=== PATIENT | male | born 1945 | race Caucasian/White ===

== ENCOUNTER 2024-03-24 14:30 | Emergency (ER) | payer OTHER, SELFPAY ==
--- NOTE | ~2024-03-24 | XR_ITS ---
EXAMINATION: X-ray right knee X-ray right tibia and fibula X-ray right ankle CLINICAL INFORMATION: Knee injury. Overlying bruising. COMPARISON: None TECHNIQUE: Knee 4 views. Tibia and fibula 2 views. Ankle 3 views. FINDINGS: Knee: Alignment is anatomic. No visible acute fracture or dislocation. Joint spaces are maintained. No significant effusion. Vascular calcifications present. Tibia and fibula: No visible acute fracture or malalignment. No suspicious bony lesions seen. No abnormal soft tissue calcification. No radiopaque foreign body in the soft tissues. Ankle: Ankle soft tissue swelling present.. Small ossific density projected in between the lateral malleolus and talar body, could reflect sequela of fracture, of indeterminate age or bony spurring or small loose body. Small spurring of the anterior aspect of the tibial plafond, with a small subjacent ossification, which could reflect a loose body. Ankle mortise is maintained. No tibial fracture is otherwise seen. No fracture seen of the anterior calcaneal process or fifth metatarsal base. No significant tibiotalar joint effusion is seen. XR/XR tibia fibula RT 2V IMPRESSION: Knee: No radiographic evidence of acute fracture or malalignment. Tibia and fibula, ankle: 1. Ankle soft tissue swelling. 2. Small ossific density in between the talar body-lateral malleolus articulation, of indeterminate etiology. This could represent a sequela of age-indeterminate fracture, loose body, bony spurring. Clinically correlate. 3. Mild tibiotalar joint arthritis, possible small loose body in the anterior joint space. 4. Additional imaging for further evaluation as clinically indicated. 5. If there is persistent symptoms, recommend follow-up radiographs or cross-sectional imaging,as clinically indicated.
--- NOTE | ~2024-03-24 | XR_ITS ---
EXAMINATION: X-ray right knee X-ray right tibia and fibula X-ray right ankle CLINICAL INFORMATION: Knee injury. Overlying bruising. COMPARISON: None TECHNIQUE: Knee 4 views. Tibia and fibula 2 views. Ankle 3 views. FINDINGS: Knee: Alignment is anatomic. No visible acute fracture or dislocation. Joint spaces are maintained. No significant effusion. Vascular calcifications present. Tibia and fibula: No visible acute fracture or malalignment. No suspicious bony lesions seen. No abnormal soft tissue calcification. No radiopaque foreign body in the soft tissues. Ankle: Ankle soft tissue swelling present.. Small ossific density projected in between the lateral malleolus and talar body, could reflect sequela of fracture, of indeterminate age or bony spurring or small loose body. Small spurring of the anterior aspect of the tibial plafond, with a small subjacent ossification, which could reflect a loose body. Ankle mortise is maintained. No tibial fracture is otherwise seen. No fracture seen of the anterior calcaneal process or fifth metatarsal base. No significant tibiotalar joint effusion is seen. XR/XR ankle RT min 3V IMPRESSION: Knee: No radiographic evidence of acute fracture or malalignment. Tibia and fibula, ankle: 1. Ankle soft tissue swelling. 2. Small ossific density in between the talar body-lateral malleolus articulation, of indeterminate etiology. This could represent a sequela of age-indeterminate fracture, loose body, bony spurring. Clinically correlate. 3. Mild tibiotalar joint arthritis, possible small loose body in the anterior joint space. 4. Additional imaging for further evaluation as clinically indicated. 5. If there is persistent symptoms, recommend follow-up radiographs or cross-sectional imaging,as clinically indicated.
--- NOTE | ~2024-03-24 | XR_ITS ---
EXAMINATION: X-ray right knee X-ray right tibia and fibula X-ray right ankle CLINICAL INFORMATION: Knee injury. Overlying bruising. COMPARISON: None TECHNIQUE: Knee 4 views. Tibia and fibula 2 views. Ankle 3 views. FINDINGS: Knee: Alignment is anatomic. No visible acute fracture or dislocation. Joint spaces are maintained. No significant effusion. Vascular calcifications present. Tibia and fibula: No visible acute fracture or malalignment. No suspicious bony lesions seen. No abnormal soft tissue calcification. No radiopaque foreign body in the soft tissues. Ankle: Ankle soft tissue swelling present.. Small ossific density projected in between the lateral malleolus and talar body, could reflect sequela of fracture, of indeterminate age or bony spurring or small loose body. Small spurring of the anterior aspect of the tibial plafond, with a small subjacent ossification, which could reflect a loose body. Ankle mortise is maintained. No tibial fracture is otherwise seen. No fracture seen of the anterior calcaneal process or fifth metatarsal base. No significant tibiotalar joint effusion is seen. XR/XR knee RT 3V IMPRESSION: Knee: No radiographic evidence of acute fracture or malalignment. Tibia and fibula, ankle: 1. Ankle soft tissue swelling. 2. Small ossific density in between the talar body-lateral malleolus articulation, of indeterminate etiology. This could represent a sequela of age-indeterminate fracture, loose body, bony spurring. Clinically correlate. 3. Mild tibiotalar joint arthritis, possible small loose body in the anterior joint space. 4. Additional imaging for further evaluation as clinically indicated. 5. If there is persistent symptoms, recommend follow-up radiographs or cross-sectional imaging,as clinically indicated.
[2024-03-24 14:35] VITALS: BP 123/62; PULSE 96; RESP 17; TEMP 36.6; O2SAT 96; BMI 22.3
--- NOTE | 2024-03-24 14:36 | ED.GENADULT ---
HPI - General Adult General Chief complaint: Extremity Injury, Lower Stated complaint: knee swelling Time Seen by Provider: 03/24/24 16:01 Source: patient, family (), RN notes reviewed and old records reviewed Mode of arrival: ambulatory Limitations: no limitations History of Present Illness ED Provider: Riccardo HPI narrative: 78-year-old male with past medical history significant for atrial fibrillation on Eliquis, hypertension, some type of bone cancer followed by Dr. Tadeo presents for evaluation right leg swelling. Patient reports he 1st noticed bruising and swelling to his right leg 5 days ago. He denies any specific injury to the right leg He believes he may have caused injury when getting himself into the tub to bathe himself Patient admits that he has a bad left hip and he has pain while moving. To alleviate the pain if his hip he usually rest his right knee on the side of the tub He reports having had an ultrasound of the right lower leg 2 days ago which was reportedly negative The patient states that he has no pain at rest but has mild pain with moving the right leg or palpate in the right leg Denies fevers or chills The patient denies any recent falls His last fall was several months ago per his Related Data Allergies Allergy/AdvReac Type Severity Reaction Status Date / Time No Known Allergies Allergy Verified 03/24/24 14:37 Review of Systems Constitutional: Constitutional: Denies body ache(s), Denies chills, Denies fever(s) and Denies frequent falls Cardiovascular: Cardiovascular: Denies chest pain and Denies dyspnea Respiratory: Respiratory: Denies cough and Denies dyspnea Musculoskeletal: Musculoskeletal: Reports arthralgias, Reports joint swelling and Denies limited range of motion Integumentary/Breasts: Skin/Breast: Reports unusual bruising Neurologic: Denies frequent falls [facility] Social History Social History (System 11/08/23 @ 14:13 by Melinda Obregon) Advance Directives: No Advance Directives Information Provided: No Physical Exam ED Vital Signs: Vital Signs - 24 hr 03/24/24 14:35 03/24/24 16:30 Temperature 98 F Pulse Rate 96 88 Respiratory Rate 17 16 Blood Pressure 123/62 179/101 H Pulse Oximetry 96 98 Oxygen Delivery Method Room Air Room Air BMI result Body Mass Index 22.3 Const General: healthy appearing, comfortable, no acute distress, alert and awake Nutritional Appearance: well nourished Orientation/consciousness: patient oriented x3 HENMT Head: Yes normocephalic and Yes atraumatic Eyes Eyelids: Yes eyelids normal Conjunctivae: conjunctivae normal Sclerae: sclerae normal Corneas: corneas normal Pupils: Equal, round and reactive pupils present EOM: EOMs intact bilaterally Neck Neck: Yes full ROM Resp Effort & Inspection: normal respiratory effort, able to speak in complete sentences and not labored Cardio Other: Dorsal pedis pulse on the right 2+ Skin General skin exam: elasticity normal Neuro General: patient oriented x3 Cranial nerves: Yes Equal, round and reactive pupils present and Yes Bilaterally intact EOM present Cognition (Neuro): normal cognition Extrem Other: The patient has marked edema to the right lower extremity below the knee. There is significant ecchymosis to the area. The color ranges from dark purple to yellow. There is pitting edema to the right lower extremity only. There is no calf tenderness, no tenderness to right ankle. Minimal tenderness to the right knee. The patient is able to flex and extend the right knee without difficulty. There was no edema to the left lower extremity Course Course Course Narrative: This is a Rapid Medical Examination (RME) performed by Tracy Fox PA-C in triage. Full HPI, ROS, assessment and treatment plan per primary provider in the Main ED. 78 yo male here for eval of right knee/ lower leg pain/ swelling x6 days. pain extends from lower leg up into knee. He believes he may have hit the knee on the tub when attempting to get into the bath. no other injury or trauma to the leg. reports open wound to leg that was oozing yesterday. took tylenol [employer] in ed. on eliquis. Venous duplex competled at [facility] on Monday (2 days ago) negative for VTE. Patient dressed in jeans in triage. Unable to visualize knee or lower leg. ambulating w/ steady gait assisted by walker. Plan: labs, XR ordered Medical Decision Making Medical Decision Making [facility] Narrative: 78-year-old male presents for evaluation of right leg bruising and swelling. He denies any specific trauma. His x-ray shows no acute fracture but osteophyte versus loose body in the ankle. The patient has no ankle pain whatsoever no tenderness to the right ankle on exam, less likely to be an acute fracture. There is no evidence of infection. The patient was ruled out for DVT. The patient has no pain to suggest compartment syndrome, the patient will be discharged home with symptomatic care Differential Diagnosis Differential Diagnoses: The differential diagnosis associated with the presentation includes Right leg swelling Right leg bruising Right leg fracture Dependent edema Lab Data MDM Lab Attestation statement: I reviewed the patient's lab results. Patient has no previous labs for comparison, however he has no leukocytosis. He has a mild macrocytic anemia. Platelet count within normal limits. Chemistries are within normal limits, the patient's BUN is slightly above normal at 24, total bilirubin is 1.3 but undifferentiated. LFTs within normal limits. 03/24/24 15:55 03/24/24 15:55 Labs: Lab Results 03/24/24 Range/Units 15:55 WBC 6.7 (4.8-10.8) X10*3/uL RBC 3.17 L (4.60-5.80) X10*6/uL Hgb 11.3 L (14.0-18.0) g/dl Hct 31.4 L (42.0-52.0) % MCV 99.1 H (80.0-98.0) fL MCH 35.6 H (27.0-33.0) pg MCHC 36.0 (31.0-36.0) g/dl RDW 13.0 (11.0-16.0) % Plt Count 217 (160-400) X10*3/uL MPV 8.9 L (9.4-12.4) fL Immature Gran % (Auto) 0.7 H (0.0-0.4) % Neut % (Auto) 79.1 H (45-73) % Lymph % (Auto) 10.7 L (20-40) % [place] % (Auto) 9.1 (2-11) % Eos % (Auto) 0.1 (0-4) % Baso % (Auto) 0.3 (0-2) % Lymph # (Auto) 0.7 L (1.2-4.9) X10*3/uL [place] # (Auto) 0.6 (0.1-1.2) X10*3/uL Eos # (Auto) 0.0 (0.0-0.4) X10*3/uL Baso # (Auto) 0.0 (0.0-0.2) X10*3/uL Abs Immat Gran (auto) 0.05 H (0.00-0.03) X10*3/uL Absolute Neuts (auto) 5.3 (2.0-8.3) x10*3/uL Absolute Nucleated RBC 0.000 (0.0-0.012) X10*3/uL Nucleated RBC % (auto) 0.0 (0.0-0.2) /100WBC PT 17.2 H (11.1-13.3) SEC INR 1.4 H (0.9-1.1) Sodium 137 (135-145) mmol/L Potassium 3.9 (3.3-5.1) mmol/L Chloride 101 (96-108) mmol/L Carbon Dioxide 28 (22-29) mmol/L Anion Gap 12 (12-20) BUN 24 H (9-16) mg/dL Creatinine 0.97 (0.5-1.4) mg/dL Estim Creat Clear Calc 51.5 Estimated GFR > 60 Random Glucose 98 (60-115) mg/dL Calcium 9.4 (8.4-10.2) mg/dL Magnesium 1.6 (1.6-2.6) mg/dL Total Bilirubin 1.3 H (0.0-1.0) mg/dL AST 29 (5-37) U/L ALT 19 (0-40) U/L Alkaline Phosphatase 82 (39-117) U/L Total Protein 6.4 L (6.5-8.0) g/dL Albumin 3.8 (3.5-5.0) g/dL Lipase 38 (8-78) U/L Radiology Impression Discussion of test interpretation with radiology: I have reviewed the radiologist's reading. Radiologist Impression: XR/XR tibia fibula RT 2V IMPRESSION: Knee: No radiographic evidence of acute fracture or malalignment. Tibia and fibula, ankle: 1. Ankle soft tissue swelling. 2. Small ossific density in between the talar body-lateral malleolus articulation, of indeterminate etiology. This could represent a sequela of age-indeterminate fracture, loose body, bony spurring. Clinically correlate. 3. Mild tibiotalar joint arthritis, possible small loose body in the anterior joint space. 4. Additional imaging for further evaluation as clinically indicated. 5. If there is persistent symptoms, recommend follow-up radiographs or cross-sectional imaging,as clinically indicated. Discharge Plan Discharge Clinical Impression: Right leg swelling, Hypertension Patient Disposition: Home, Self-Care Instructions: Leg Edema (ED) Additional Instructions: Take all your medications as prescribed. Elevate your right leg above your heart while resting. Follow-up with your primary doctor Return for new or worsening symptoms Print Language: Cameroonian
[2024-03-24 16:01] LABS: MANUAL DIFF FLAG NO
[2024-03-24 16:04] LABS: Basophils Percent Auto 0.3 % (0-2); Eosinophils Percent Auto 0.1 % (0-4); Hematocrit 31.4 % (42.0-52.0); Hemoglobin 11.3 g/dl (14.0-18.0); Imm Gran Abs Auto 0.05 X10*3/uL (0.00-0.03); Imm Gran Pct Auto 0.7 % (0.0-0.4); Lymphocytes Absolute Auto 0.7 X10*3/uL (1.2-4.9); Lymphocytes Percent Auto 10.7 % (20-40); Mean Corpuscular Hemoglobin 35.6 pg (27.0-33.0); Mean Corpuscular Volume 99.1 fL (80.0-98.0); Mean Platelet Volume 8.9 fL (9.4-12.4); Monocytes Absolute Auto 0.6 X10*3/uL (0.1-1.2); Monocytes Percent Auto 9.1 % (2-11); Neutrophils Absolute Auto 5.3 x10*3/uL (2.0-8.3); Neutrophils Percent Auto 79.1 % (45-73); Platelet Count 217 X10*3/uL (160-400); Red Blood Count 3.17 X10*6/uL (4.60-5.80); White Blood Count 6.7 X10*3/uL (4.8-10.8)
[2024-03-24 16:10] LABS: INTERNATIONAL NORM RATIO 1.4 (0.9-1.1); Prothrombin Time 17.2 SEC (11.1-13.3)
[2024-03-24 16:19] LABS: Alanine Aminotransferase 19 U/L (0-40); Albumin Level 3.8 g/dL (3.5-5.0); Alkaline Phosphatase 82 U/L (39-117); Anion Gap 12 (12-20); Aspartate Amino Transferase 29 U/L (5-37); Bilirubin Total 1.3 mg/dL (0.0-1.0); Blood Urea Nitrogen 24 mg/dL (9-16); Calcium 9.4 mg/dL (8.4-10.2); Carbon Dioxide 28 mmol/L (22-29); Chloride 101 mmol/L (96-108); Creatinine Clr Calc Pharmacy 51.5; Estimated Glomerular Filt Rate > 60; Glucose Random 98 mg/dL (60-115); Lipase 38 U/L (8-78); Magnesium 1.6 mg/dL (1.6-2.6); Potassium 3.9 mmol/L (3.3-5.1); Sodium 137 mmol/L (135-145); Total Protein 6.4 g/dL (6.5-8.0)
[2024-03-24 16:30] VITALS: BP 179/101; PULSE 88; RESP 16; O2SAT 98
[2024-03-24] MEDS: amLODIPine Besylate 2.5 MG TABLET PO (17:03)
[2024-03-24 17:08] VITALS: BP 179/101; PULSE 88; RESP 16; TEMP -17.7; TEMP 0; O2SAT 98
== END 2024-03-24 17:09 | disposition home or self-care (01) ==
PROVIDERS: Physician Assistant Medical; Emergency Provider Emergency Medicine; PCP Internal Medicine
DX: M79.89 Other specified soft tissue disorders (principal); I10 Essential (primary) hypertension; I48.91 Unspecified atrial fibrillation; Z79.01 Long term (current) use of anticoagulants
CPT/HCPCS: 36415; 73562; 73590; 73610; 80053; 83690; 83735; 85025; 85610; 99283

== ENCOUNTER 2024-07-28 04:43 | Emergency (ER) | payer OTHER, SELFPAY ==
--- NOTE | ~2024-07-28 | CT_ITS ---
EXAMINATION: CT HEAD WITHOUT CONTRAST CT CERVICAL SPINE WITHOUT CONTRAST CLINICAL INFORMATION: Fall. Pain. COMPARISON: None available. TECHNIQUE: Contiguous axial imaging was performed through the head and cervical spine without intravenous administration of contrast. Sagittal and coronal reformatted images also obtained. This CT examination was performed using dose optimization techniques as appropriate, variously including the following: *Automated exposure control *Adjustment of mA and/or kV according to patient size (this includes techniques or standardized protocols for targeted exams where dose is matched to indication/reason for exam; i.e. extremities or head) *Use of iterative reconstruction technique DLP: 882 mGy-cm FINDINGS: There is mild cerebral volume loss with prominence of the lateral and the third ventricles. The cortical sulci are widened appropriately. The fourth ventricle and basal cisterns are normally outlined. There is mild bilateral periventricular and central white matter diminished attenuation. There is no acute vertebral defect, hemorrhage or midline shift. The extra-axial spaces are unremarkable. Calvarium/scalp: Intact. Maxillofacial sinuses and mastoids: Clear as visualized. Cervical spine: The alignment is within normal limits. C3 to C5 laminectomies are noted. There is diffuse moderate cervical disc degenerative change with loss of disc space, endplate change and posterior osteophytes associated with diffuse mild facet osteoarthritic hypertrophic change with multilevel mild spinal canal and multilevel mild to moderate neuroforaminal narrowing. The bony structures are heterogeneous. Sclerotic lesions are seen within multiple cervical and upper thoracic vertebral bodies including the posterior elements of multiple cervical and thoracic vertebral bodies. The soft tissues are unremarkable. The visualized upper lung bowers are clear.. CT/CT cervical spine wo IV con IMPRESSION: 1. No acute intracranial process seen. Age-related cerebral volume loss with chronic small vessel ischemic changes. 2. There is no acute cervical spine fracture or dislocation. There are multiple sclerotic lesions within the cervical and upper thoracic vertebral bodies. Recommend correlation with bone scan as bone scan suspected. 3. There is C3-C5 laminectomies. There are degenerative disc changes and facet joint arthropathy throughout the cervical spine with multilevel mild spinal canal and mild to moderate neuroforaminal narrowing. Electronically signed by: Martin Xavier MD 07/28/2024 06:09 AM EDT
--- NOTE | ~2024-07-28 | XR_ITS ---
EXAMINATION: XR HIP, LEFT CLINICAL INFORMATION: Fall COMPARISON: None available. TECHNIQUE: Two views of the left hip and single view of the pelvis. 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 No acute visible fracture or dislocation. Moderate degenerative arthropathy of the right femoral acetabular joint. Degenerative changes of the lumbosacral spine. Multifocal sclerotic foci throughout the pelvis, nonspecific and reflect Paget's disease though other etiologies not excluded. Bowel gas is unremarkable. Soft tissues are unremarkable. XR/XR hip LT w PEL1V IMPRESSION: 1. 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 2. No acute visible fracture or dislocation. 3. Moderate degenerative arthropathy of the right femoral acetabular joint. 4. Degenerative changes of the lumbosacral spine. 5. Multifocal sclerotic foci throughout the pelvis, nonspecific and reflect Paget's disease though other etiologies not excluded. Electronically signed by: Liyah Lr MD 07/28/2024 07:27 AM EDT
[2024-07-28 04:49] VITALS: BP 130/86; PULSE 85; O2SAT 98
[2024-07-28 04:50] VITALS: BP 162/96; PULSE 90; RESP 15; TEMP 37; O2SAT 95; BMI 22.6
--- NOTE | 2024-07-28 05:04 | ED.FALL ---
HPI - Fall General Chief Complaint: Fall Stated Complaint: Fell out of bed, +blood thinners, -LOC ,+HS Time Seen by Provider: 07/28/24 05:04 Source: patient Mode of arrival: EMS Limitations: no limitations History of Present Illness ED Provider: tiesha PIERRE Narrative: Patient' history of atrial fibrillation on Eliquis apparently rolled over from his bed to the ground in sleep comes here with superficial abrasion to the forehead no loss of consciousness no nausea no vomiting no significant headache no other injuries patient does have chronic left hip pain Related Data Home Medications ?Medication ?Instructions ?Recorded ?Confirmed acetaminophen 325 mg tablet 650 mg PO Q6H PRN Pain 07/28/24 07/28/24 amlodipine 2.5 mg tablet 2.5 mg PO DAILY PRN HIGH BLOOD 07/28/24 07/28/24 PRESSURE apixaban 5 mg tablet (Eliquis) 5 mg PO BID 07/28/24 07/28/24 betamethasone dipropionate 0.05 % 1 appl topical DAILY 07/28/24 07/28/24 topical cream cholecalciferol (vitamin D3) 25 25 mcg PO DAILY 07/28/24 07/28/24 mcg (1,000 unit) tablet enzalutamide 40 mg capsule (Xtandi) 160 mg PO DAILY 07/28/24 07/28/24 folic acid 1 mg tablet 1 mg PO MO@0900 07/28/24 07/28/24 lactobacillus comb no.10 20 20,000 mmu cells PO DAILY@1800 07/28/24 07/28/24 billion cell capsule (Probiotic) leuprolide acetate (6 month) 45 mg 45 mg subcut [id number] 07/28/24 07/28/24 (6 month) subcutaneous syringe (Eligard) metoprolol tartrate 25 mg tablet 25 mg PO BEDTIME 07/28/24 07/28/24 multivitamin-iron 9 mg-folic acid 1 tab PO DAILY 07/28/24 07/28/24 400 mcg-calcium and minerals tablet prednisone 5 mg tablet 5 mg PO BID 07/28/24 07/28/24 sulfamethoxazole 400 1 tab PO BID 07/28/24 07/28/24 mg-trimethoprim 80 mg tablet tramadol 50 mg tablet 50 mg PO BID PRN pain 07/28/24 07/28/24 Allergies Allergy/AdvReac Type Severity Reaction Status Date / Time No Known Allergies Allergy Verified 07/28/24 04:55 Review of Systems Review of Systems: Yes all other systems are reviewed and are negative [facility] Social History Social History Alcohol intake: current Alcohol intake frequency: 0-2 drinks per day Smoked in Last 30 Days: Yes Use of substances other than those prescribed or required for medical reasons: No Advance Directives: No Do you have a plan to hurt others: No Plan Physical Exam Vital Signs: Vital Signs: Last Vital Signs Temp 97.2 F 07/29/24 06:37 Pulse 79 07/29/24 06:37 Resp 16 07/29/24 06:37 BP 142/80 H 07/29/24 07:45 Pulse Ox 95 07/29/24 06:37 O2 Del Method Room Air 07/29/24 06:37 BMI result Body Mass Index 22.6 Appearance: Alert. Oriented X3. No acute distress. Eyes: PERRLA, No Nystagmus HEENT: Pharynx normal. Oral Mucosa moist superficial linear abrasion to the forehead Neck: Normal inspection. Neck supple. CVS: Irregularly irregular heart rate. Pulses normal. Respiratory: No respiratory distress. Equal air entry bilateral, no wheezing/rales/rhonchi Abdomen: Soft and nontender. Bowel sounds are present, no mass palpable, no CVA tenderness Skin: Skin warm and dry. Normal skin color. Normal skin turgor. Extremities: No lower extremity edema. No calf tenderness left hip tenderness chronic per patient Neuro: Oriented X 3. No motor deficit. No sensory deficit.No cerebellar signs , cranial nerves II-XII intact Course Reevaluation(s) Reevaluation #1: DR. Fitzgerald's Progress note; was ready for discharge stated that she can not care for the patient at, patient is failure to thrive and deconditioning requesting physical therapy and assessment for short-term rehab, patient was started on physician observation, case management and PT consult were ordered. Time: 08:06 Reevaluation #2: 07/29/2024 0817 - physician observation continued. Patient hypertensive upon the initiation of my shift. Spoke to the nurse who report that patient did not get his hypertensive medication until later on in the evening. Patient also has amlodipine ordered as needed. He was given a dose, blood pressure improved to 142/80. He was asymptomatic. We will continue to closely monitor pending case management disposition. Patient also is on albuterol as needed for COPD which is not in the med rec. He is not currently short of breath however would like to have this on his medication list. This was added only to be used as needed. We will continue to monitor Medications Administered Generic Name Dose Route Start Last Admin Trade Name Freq PRN Reason Stop Dose Admin Apixaban 5 mg 07/28/24 21:00 07/28/24 21:29 Apixaban 5 Mg Tablet PO 5 mg BID RONNIE Administration Metoprolol Tartrate 25 mg 07/28/24 21:00 07/28/24 21:31 Metoprolol Tartrate 25 Mg Tablet PO 25 mg BEDTIME RONNIE Administration Protocol Prednisone 5 mg 07/28/24 21:00 07/28/24 21:30 Prednisone 5 Mg Tablet PO 08/08/24 20:59 5 mg BID RONNIE Administration Trimethoprim/Sulfamethoxazole 1 tab 07/28/24 21:00 07/28/24 21:30 Sulfamethox/Trimeth 400/80 Tablet PO 1 tab BID RONNIE Administration Discontinued Medications Generic Name Dose Route Start Last Admin Trade Name Freq PRN Reason Stop Dose Admin Bacitracin 1 appl 07/28/24 05:31 07/28/24 06:00 Bacitracin Oint 0.9 Gm Packet TOPICAL 07/28/24 05:32 1 appl ONCE ONE Administration Protocol Medical Decision Making Medical Decision Making [facility] Narrative: Patient with mechanical fall rolled over from the bed no significant injury except for superficial abrasion to the forehead CT scan of the head and C-spine negative Lab Data 07/28/24 08:27 07/28/24 08:27 Labs: Lab Results 07/28/24 07/29/24 Range/Units 08:27 00:27 WBC 5.7 (4.8-10.8) X10*3/uL RBC 4.04 L D (4.60-5.80) X10*6/uL Hgb 13.9 L D (14.0-18.0) g/dl Hct 39.6 L D (42.0-52.0) % MCV 98.0 (80.0-98.0) fL MCH 34.4 H (27.0-33.0) pg MCHC 35.1 (31.0-36.0) g/dl RDW 12.9 (11.0-16.0) % Plt Count 221 (160-400) X10*3/uL MPV 8.6 L (9.4-12.4) fL Immature Gran % (Auto) 0.5 H (0.0-0.4) % Neut % (Auto) 69.4 (45-73) % Lymph % (Auto) 19.3 L (20-40) % [place] % (Auto) 9.6 (2-11) % Eos % (Auto) 0.5 (0-4) % Baso % (Auto) 0.7 (0-2) % Lymph # (Auto) 1.1 L (1.2-4.9) X10*3/uL [place] # (Auto) 0.6 (0.1-1.2) X10*3/uL Eos # (Auto) 0.0 (0.0-0.4) X10*3/uL Baso # (Auto) 0.0 (0.0-0.2) X10*3/uL Abs Immat Gran (auto) 0.03 (0.00-0.03) X10*3/uL Absolute Neuts (auto) 4.0 (2.0-8.3) x10*3/uL Absolute Nucleated RBC 0.000 (0.0-0.012) X10*3/uL Nucleated RBC % (auto) 0.0 (0.0-0.2) /100WBC Sodium 137 (135-145) mmol/L Potassium 4.8 D (3.3-5.1) mmol/L Chloride 103 (96-108) mmol/L Carbon Dioxide 26 (22-29) mmol/L Anion Gap 13 (12-20) BUN 19 H (9-16) mg/dL Creatinine 0.85 (0.5-1.4) mg/dL Estim Creat Clear Calc 61.2 Estimated GFR > 60 Random Glucose 95 (60-115) mg/dL Calcium 9.5 (8.4-10.2) mg/dL Urine Color Yellow Urine Appearance Clear Urine pH 6.0 (5.0-9.0) Ur Specific [place] 1.010 (1.005-1.025) Urine Protein Negative (Neg-Trace) mg/dL Urine Glucose (UA) Negative (Negative) mg/dL Urine Ketones Negative (Negative) mg/dL Urine Blood Negative (Negative) Urine Nitrite Negative (Negative) Ur Leukocyte Esterase Negative (Negative) Independent Interpretation I performed an independent interpretation of an: CT Scan Radiology Impression Discussion of test interpretation with radiology: I have reviewed the radiologist's reading. Discharge Plan Discharge Clinical Impression: Fall Patient Disposition: Home, Self-Care Instructions: Fall Prevention (ED) Additional Instructions: Your CT scan of the head and C-spine negative for acute your x-ray of the hip also negative for acute fracture Care and cautions as advised Prescriptions: No Action sulfamethoxazole-trimethoprim 400-80 mg tablet 1 tab PO BID prednisone 5 mg tablet 5 mg PO BID Rx Instructions: UNTIL END amlodipine 2.5 mg tablet 2.5 mg PO DAILY PRN (Reason: HIGH BLOOD PRESSURE) Rx Instructions: FOR SBP <140 tramadol 50 mg tablet 50 mg PO BID PRN (Reason: pain) metoprolol tartrate 25 mg tablet 25 mg PO BEDTIME cholecalciferol (vitamin D3) 25 mcg (1,000 unit) tablet 25 mcg PO DAILY Eliquis 5 mg tablet 5 mg PO BID acetaminophen 325 mg Tablet 650 mg PO Q6H PRN (Reason: Pain) betamethasone dipropionate 0.05 % cream 1 appl topical DAILY folic acid 1 mg Tablet 1 mg PO MO@0900 Xtandi 40 mg Capsule 160 mg PO DAILY Probiotic 20 billion cell Capsule 20,000 mmu cells PO DAILY@1800 Rx Instructions: administer with a meal Therems-M 9 mg iron-400 mcg Tablet 1 tab PO DAILY Eligard (6 month) 45 mg Syringe 45 mg SUBCUT [id number] Print Language: Danish
--- NOTE | 2024-07-28 05:50 | MHC.EDTECH ---
patient's forehead cleaned and bacitracin applied per provider.
[2024-07-28] MEDS: Bacitracin Oint 0.9 GM PACKET 1 APPL TOPICAL (06:00)
[2024-07-28 06:04] VITALS: BP 156/85; PULSE 71; RESP 14; TEMP 36.9; O2SAT 96
--- NOTE | 2024-07-28 06:51 | PC.NURSE ---
report given to Irma WHALEY
[2024-07-28 08:33] LABS: MANUAL DIFF FLAG NO
[2024-07-28 08:49] LABS: Basophils Percent Auto 0.7 % (0-2); Eosinophils Percent Auto 0.5 % (0-4); Hematocrit 39.6 % (42.0-52.0); Hemoglobin 13.9 g/dl (14.0-18.0); Imm Gran Abs Auto 0.03 X10*3/uL (0.00-0.03); Imm Gran Pct Auto 0.5 % (0.0-0.4); Lymphocytes Absolute Auto 1.1 X10*3/uL (1.2-4.9); Lymphocytes Percent Auto 19.3 % (20-40); Mean Corpuscular HGB Conc 35.1 g/dl (31.0-36.0); Mean Corpuscular Hemoglobin 34.4 pg (27.0-33.0); Mean Platelet Volume 8.6 fL (9.4-12.4); Monocytes Absolute Auto 0.6 X10*3/uL (0.1-1.2); Monocytes Percent Auto 9.6 % (2-11); Neutrophils Percent Auto 69.4 % (45-73); Platelet Count 221 X10*3/uL (160-400); Red Blood Count 4.04 X10*6/uL (4.60-5.80); Red Cell Distribution Width 12.9 % (11.0-16.0); White Blood Count 5.7 X10*3/uL (4.8-10.8)
[2024-07-28 08:52] LABS: Anion Gap 13 (12-20); Blood Urea Nitrogen 19 mg/dL (9-16); Calcium 9.5 mg/dL (8.4-10.2); Carbon Dioxide 26 mmol/L (22-29); Chloride 103 mmol/L (96-108); Creatinine Clr Calc Pharmacy 61.2; Estimated Glomerular Filt Rate > 60; Glucose Random 95 mg/dL (60-115); Potassium 4.8 mmol/L (3.3-5.1); Sodium 137 mmol/L (135-145)
--- NOTE | 2024-07-28 09:09 | PC.NURSE ---
This RN resumed care of patient at 0700, at this time we were waiting for his Xray to be read. Xray came back negative, this Rn then called his which was suppose to come pick him up. This Rn then got into a very long conversation with Christine who is clearly very overwhelmed and unable to take care of him safely at home. this Rn then went to hot car charger and MD who placed Pt/CM, Christine is aware. Report given to Ed Overflow at this time
--- NOTE | 2024-07-28 12:08 | PC.NURSE ---
Pt comes to overflow unit from ED for PT/CM. Per report from ED RN, Pts has great concern for Pt returning home d/t fall risk. Pharmacy in with Pt for med rec at this time. Pt resting quietly in hospital bed; NAD noted at this time.
--- NOTE | 2024-07-28 12:27 | PHA.MEDREC ---
Addendum entered by Liz Vieira RPh 07/28/24 13:00: MED REC REVIEWED BY Bright Original Note: Pharmacy Consult ? Medication Reconciliation Pharmacy has completed the medication reconciliation. Spoke to patient and patient's spouse (june - [phone]) to confirm meds. Patient's spouse is well-versed on patients medications. Patient is on Xtandi 160 mg daily and gets Eligard injections every 6 months with last injection in May.
--- NOTE | 2024-07-28 13:00 | MHC.CM.PN ---
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 PT REPORTS HE HAS A FWW/ROLLATERGRAB BARS IN AND CUT OUT OF BATH TUB, PT REPORTS HE AND HAVE A RING STAMPER 1 OR 2 TIMES A WK AND PT REQUESTS CM CONTACT HIS MARCH. CM CONTACTED PT'S MARCH AT 112:40PM [phone], LIDIA APPEARS TO BE OVERWHELMED W/CAREGIVER BURNOUT AND VERY SCATTERED TO SPEAK TO, SARAH WANTS STR FOR PT HOWEVER WANTS HIM TO GO TO A GOOD PLACE AND REPORTS SHE CANT GO FAR FROM THEIR HOME IN [place], PT REPORTS HE WOULD LIKE [facility] OR [facility]. MARCH ALSO REPORTS PT HAS AN APPT ON MONDAY W/A INTERCELL CONNECTOR PLACER FROM [facility] TO EVALUATE HIM FOR PALLIATIVE CARE MULTIPLE PROVIDERS HAVE RECOMMENDED IT.
[2024-07-28 14:00] VITALS: BP 137/71; PULSE 85; RESP 17; TEMP 36.9; O2SAT 97
--- NOTE | 2024-07-28 15:39 | PC.NURSE ---
Pts family at bedside to visit. delivers Pts Xtandi (enzalutamide) 40mg medication from home per request of Pharmacy staff this AM. Call placed to Pharmacy and spoke with Jacobo. Pharmacy staff to retrieve medication for verification.
--- NOTE | 2024-07-28 19:23 | PC.NURSE ---
This RN assumed pt care @ 1900. Pt sitting up in bed to use urinal Pt reminded not to get oob, unless he calls for assistance. Pts bed alarm set. Plan of care ongoing.
[2024-07-28 20:21] VITALS: BP 162/84; PULSE 62; RESP 16; TEMP 36.6; O2SAT 97
--- NOTE | 2024-07-28 21:06 | PC.NURSE ---
Meds not in pyxis, requested from pharmacy. Plan of care ongoing.
--- NOTE | 2024-07-28 21:18 | PC.NURSE ---
Pt rafaeling jass for meds, this RN explained waiting on a med from the pharmacy and once those are received his meds will be brought to him. Pts on the phone, stating pt needs his meds and she is very upset that he has not received meds today. This RN explained to pt and that meds are required from the pharmacy and once those are received he will be given his 2100 meds. Plan of care ongoing.
[2024-07-28] MEDS: Apixaban 5 MG TABLET PO (21:29)
[2024-07-28] MEDS: Sulfamethox/Trimeth 400/80 TABLET 1 TAB PO (21:30)
[2024-07-28] MEDS: predniSONE 5 MG TABLET PO (21:30)
[2024-07-28 21:31] VITALS: BP 162/84
[2024-07-28] MEDS: Metoprolol Tartrate 25 MG TABLET PO (21:31)
--- NOTE | 2024-07-28 21:57 | PC.NURSE ---
Pt medicated per [facility] Plan of care ongoing.
[2024-07-29 00:33] LABS: Appearance Urine Clear; Color Urine Yellow; Glucose Urine UA Negative (Negative); Leukocyte Esterase Urine Negative (Negative); Nitrite Urine Negative (Negative); Urine Blood Negative (Negative); Urine Ketones Negative (Negative); Urine Protein Negative (Neg-Trace)
--- NOTE | 2024-07-29 03:50 | PC.NURSE ---
Pt requested and light turned off. Plan of care ongoing.
--- NOTE | 2024-07-29 06:13 | PC.NURSE ---
Pt assisted into wheelchair from toilet and back into bed. Plan of care ongoing.
[2024-07-29 06:37] VITALS: BP 186/94; PULSE 79; RESP 16; TEMP 36.2; O2SAT 95
--- NOTE | 2024-07-29 06:43 | PC.NURSE ---
Provider notified and aware of pts b/p 186/94. Plan of care ongoing.
--- NOTE | 2024-07-29 06:51 | PC.NURSE ---
Pt medicated per dec. Plan of care ongoing.
[2024-07-29 07:45] VITALS: BP 142/80
--- NOTE | 2024-07-29 07:46 | PC.NURSE ---
pt noted to be hypertensive during previous shift. BP medication administered by previous RN. updated BP obtained post medication administration. BP seems to be trending downward at this time. provider notified/aware.
--- NOTE | 2024-07-29 08:19 | MHC.EDTECH ---
pt voided 300 ml
--- NOTE | 2024-07-29 08:20 | MHC.EDTECH ---
pt ate 100% breakfast
[2024-07-29] MEDS: ENZALUTAMIDE 40 MG 160 EACH PO (09:02)
[2024-07-29] MEDS: Sulfamethox/Trimeth 400/80 TABLET 1 TAB PO ×2 (09:02→21:25)
[2024-07-29] MEDS: Cholecalciferol (Vitamin D3) 25 MCG TABLET PO (09:02)
[2024-07-29] MEDS: Apixaban 5 MG TABLET PO ×2 (09:02→21:24)
[2024-07-29] MEDS: Triamcinolone Acet 0.5 % Cream 15 GM TUBE 1 APPL TOPICAL (09:02)
[2024-07-29] MEDS: Folic Acid 1 MG TABLET PO (09:02)
[2024-07-29] MEDS: Multivitamin TABLET 1 TAB PO (09:02)
[2024-07-29] MEDS: predniSONE 5 MG TABLET PO ×2 (09:02→21:25)
--- NOTE | 2024-07-29 09:41 | PC.NURSE ---
pt requesting to take a shower. pt provided w/ supplies.
--- NOTE | 2024-07-29 10:03 | MHC.EDTECH ---
pt has complete bed change and was 1assist to the shower and was standby by in the shower and back to the recliner
[2024-07-29 10:06] LABS: COVID-19 Test Negative (Negative); IDNOW Serial# 08D9AD1C
--- NOTE | 2024-07-29 10:37 | MHC.CM.ED ---
Patient remains in ER overflow. Physical therapy eval completed. Home with services is recommended. Patient currently in shower. Attempted to speak with patient's , Christine, via telephone at [phone]. Before physical therapy results could be explained, Christine stated her needs to be transferred to [facility] immediately because he has a head injury and your hospital is unable to do a complete work up. T/W explained patient was seen by ER provider, had imaging done and was seen by physical therapy. Christine still insistent that patient be transferred to [facility]. T/W explained [facility] provider would be made aware of this request. [facility] provider will have to call [facility] ER provider and discuss transfer. Also explained it [facility] ER provider did not accept patient we would not be able to transfer him. Christine stated they'll accept him. His oncologist is there and I'm a retired nurse. [facility]ed to [facility]. Christine considered to state her needs to be transferred so that he can get a complete work up and be admitted to [facility]. The above information was provided to Trudy ORDOÑEZ and Dr Vasquez. Dr Vasquez met with patient. Dr Vasquez will call Christine to explain why a medical transfer is not appropriate. Patient has been active with [facility] in the past for [facility]. Referral [facility]. Continue to monitor for d/c needs.
[2024-07-29] MEDS: Albuterol Sulfate 90 MCG 8 GM INHALER 2 PUFF INHALE ×2 (11:42→21:26)
--- NOTE | 2024-07-29 11:43 | PC.NURSE ---
pt requesting PRN albuterol. PRN inhaler utilized. no sob/wob noted. respirations even/unlabored. lung sounds CTA. effectiveness pending.
--- NOTE | 2024-07-29 11:50 | MHC.CM.ED ---
Dr Vasquez spoke at length with patient's , Christine, via telephone. Christine still requesting to have patient transferred to [facility]. T/W spoke with Christine via telephone with Ginger Lockwood CM director. Christine is going to call patient's oncologist to arrange a direct admit to [facility]. Christine unable to verbalize alternative d/c plan if [facility] is unable to accommodate. Christine stated he can't come home. Christine notified by Ginger Lockwood that HINN issued verbally. Printed HINN will be provided to patient. Continue to monitor for d/c needs.
--- NOTE | 2024-07-29 12:39 | MHC.EDTECH ---
pt ate 40% of his lunch
[2024-07-29 14:00] VITALS: BP 128/77; PULSE 88; RESP 20; TEMP 37.3; O2SAT 98
--- NOTE | 2024-07-29 15:41 | MHC.EDTECH ---
pt was 1 assist to the bathroom with a walker and back on the recilner
--- NOTE | 2024-07-29 16:10 | MHC.CM.ED ---
Received telephone call from patient's , Christine around 1430. Christine stated she contacted patient's oncologist office and is waiting for a return telephone call to see if they will arrange direct admit to [facility]. Christine stated patient fell at 345am and later that day patient stated he was depressed to her. Christine requesting Crisis eval. Care Team consult ordered and pending. Christine also requested a neuro consult. T/W explained neuro consult would not be realistic from ER. Christine verbalized understanding. Christine requesting to speak about STR. T/W explained physical therapy did not feel STR was needed and patient could safely return home with therapy at home. Christine stated he can't come home. T/W again tried to offer private pay STR. Christine became upset and tried to state that patient is not safe to come home. T/W attempted to remind her that a HINN was already issued. Christine elevated her voice. T/W explained conversation was going to end at this time. Ginger Lockwood CM Director aware. Trudy ORDOÑEZ aware. Care team consult ordered. Continue to monitor for d/c needs.
[2024-07-29] MEDS: Acetaminophen 325 MG TABLET 650 MG PO (17:31)
[2024-07-29] MEDS: traMADoL HCL 50 MG TABLET PO (17:35)
--- NOTE | 2024-07-29 18:31 | PC.NURSE ---
Pt c/o pain 7/10 to L hip. Pt states ordered Tramadol does not work for him and that Tylenol helps more than the Tramadol but also doesn't help much. Pt tried hot packs with some + effect. Texted Trudy Alfonso then Donta Mullins. 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 ANGIOGRAPHY TECHNOLOGIST agreed pt could have Tramadol and APAP together for pain 8/. Pt agreeable to plan. Warm pack given while meds took effect Pt states pain 1-2 while sitting after meds. plan of care ongoing.
--- NOTE | 2024-07-29 19:22 | PC.NURSE ---
inadvertantly clicked effective on Tylenol reassessment, system not allowing edit. Pain med was somewhat effective per patient and is worse with any activity.
[2024-07-29 21:19] VITALS: BP 119/63; PULSE 89; RESP 16; TEMP 36.4; O2SAT 95
[2024-07-29] MEDS: Metoprolol Tartrate 25 MG TABLET PO (21:25)
--- NOTE | 2024-07-29 23:00 | PC.NURSE ---
Patient alert and oriented, reports mild pain to left hip, previously medicated per mar. Patient ambulated to bathroom with walker and 1 assist. Lungs clear, vitals stable, bedtime medications administered per mar. Assisted patient into bed, warm blanket provided, callbell within reach.
[2024-07-30] MEDS: traMADoL HCL 50 MG TABLET PO ×2 (05:22→10:57)
[2024-07-30] MEDS: Acetaminophen 325 MG TABLET 650 MG PO (05:27)
[2024-07-30 05:34] VITALS: BP 164/92; PULSE 74; RESP 18; TEMP 36.4; O2SAT 95
[2024-07-30] MEDS: Multivitamin TABLET 1 TAB PO (09:10)
[2024-07-30] MEDS: predniSONE 5 MG TABLET PO (09:10)
[2024-07-30] MEDS: Apixaban 5 MG TABLET PO (09:10)
[2024-07-30] MEDS: Cholecalciferol (Vitamin D3) 25 MCG TABLET PO (09:10)
[2024-07-30] MEDS: Sulfamethox/Trimeth 400/80 TABLET 1 TAB PO (09:10)
[2024-07-30] MEDS: ENZALUTAMIDE 40 MG 160 EACH PO (09:13)
--- NOTE | 2024-07-30 10:00 | PC.NURSE ---
Patient ambulated with walker, stand by supervision,
[2024-07-30] MEDS: Albuterol Sulfate 90 MCG 8 GM INHALER 2 PUFF INHALE (10:50)
--- NOTE | 2024-07-30 12:06 | MHC.CM.ED ---
Addendum entered by Flora Vogel 07/30/24 12:50: [facility] is unable to accept patient. [facility] can accept patient. Will d/c home with [facility] for physical therapy. Original Note: Patient remains in ER. Cleared by Care Team. Cleared by physical therapy. No medical reason for admission. Met with patient and Paula Damon, ER Nurse Director. Patient does not feel he is safely ambulating, even though nursing has witnessed patient ambulate to the bathroom with a walker and supervision. Patient also not agreeable to privately pay for STR. Patient requesting T/W speak with his . T/W explained his , Christine, has been difficult to effectively communicate with because of her unrealistic expectations. Patient spoke with via his cellphone privately and then asked RAISSA and Paula to speak with via speaker phone. Christine continued to state that she was going to reach out to patient's [facility] case management manager and that the patient was to stay safely in the hospital. March ended coversation. Patient requesting 30 mins to decide if he will go home or not. T/W explained patient was not willing to privately pay for STR, still would not be able to transfer to [facility] due to [facility] and still no medical reason for admission. Patient agreeable to d/c home via BLS. Tye TERAN booked for 1130. [facility] with chart. Patient, Ludy WHALEY and Eli ORDOÑEZ aware. Continue to monitor for d/c needs.
[2024-07-30 12:15] VITALS: BP 164/92; PULSE 74; RESP 18; TEMP 36.4; O2SAT 95
== END 2024-07-30 12:17 | disposition home or self-care (01) ==
PROVIDERS: Emergency Medicine; Physician Assistant Medical; Emergency Provider Internal Medicine; PCP Internal Medicine
DX: S00.81XA Abrasion of other part of head, initial encounter (principal); I48.91 Unspecified atrial fibrillation; M25.552 Pain in left hip; R51.9 Headache, unspecified; R26.2 Difficulty in walking, not elsewhere classified; M54.2 Cervicalgia; I10 Essential (primary) hypertension; W06.XXXA Fall from bed, initial encounter; Y93.89 Activity, other specified; Y92.89 Other specified places as the place of occurrence of the external cause; Y99.8 Other external cause status; Z79.01 Long term (current) use of anticoagulants; Z11.52 Encounter for screening for COVID-19; Z79.899 Other long term (current) drug therapy
CPT/HCPCS: 36415; 70450; 72125; 73502; 80048; 81003; 85025; 87635; 96372; 97162; 99285; S9485